=== PATIENT | male | born 2000 | race Two or more races ===

== ENCOUNTER 2021-03-01 17:27 | Emergency (ER) | payer BC, OTHER ==
[~2021-03-01] VITALS: Ht 170.2 cm; Wt 54.4 kg
== END 2021-03-01 22:30 ==
LOC: ER 17:27
DX: I46.9 Cardiac arrest, cause unspecified (principal); F10.129 Alcohol abuse with intoxication, unspecified; F11.10 Opioid abuse, uncomplicated; F12.10 Cannabis abuse, uncomplicated; E16.2 Hypoglycemia, unspecified; Y90.9 Presence of alcohol in blood, level not specified
CPT/HCPCS: 31500; 92950